=== PATIENT | male | born 1975 ===

== ENCOUNTER 2018-11-30 17:35 | Emergency (ER) | payer OTHER ==
[2018-11-30 17:45] VITALS: BP 113/77; PULSE 77; RESP 18; TEMP 98.2; O2SAT 97; BMI 24.3
[2018-11-30] MEDS ORDERED: Bacitracin 500 Units/gm Oint Foilpak UD ONE (18:58)
--- NOTE | 2018-11-30 18:59 | ED PDOC ---
Arrival/HPI - General Chief Complaint: Upper Extremity Problem/Injury Time Seen by Provider: 11/30/18 18:01 Historian: Patient - History of Present Illness Narrative History of Present Illness (Text): 11/30/18 18:55 43-year-old male presents to the emergency room for wound check to the left index finger. Patient states that approximately 1 week ago he sustained a laceration to his left index finger, he went to an urgent care center 2 days after the initial injury, states that his wound was too old for laceration repair therefore it was cleaned and a finger splint was applied. States when he left the urgent care he was also prescribed antibiotics which he is currently still taking. He reports no pain, redness, swelling, numbness or decrease in range of motion of the finger. He has no other complaints. Past Medical History - Infectious Disease Hx of Infectious Diseases: None - Cardiac Hx Cardiac Disorders: No - Psychiatric Hx Substance Use: No - Anesthesia Hx Anesthesia: No Family/Social History Family/Social History: No Known Family HX Smoking Status: Unknown If Ever Smoked Hx Alcohol Use: No Hx Substance Use: No Allergies/Home Meds Allergies/Adverse Reactions: Allergies No Known Allergies Allergy (Verified 11/30/18 18:00) Review of Systems - Review of Systems Constitutional: absent: Fatigue, Fevers Musculoskeletal: absent: Arthralgias, Back Pain, Neck Pain, Joint Swelling Skin: Laceration. absent: Rash, Skin Lesions Physical Exam Vital Signs Temp Pulse Resp BP Pulse Ox 11/30/18 17:40 98.2 F 77 18 113/77 97 Temperature: Afebrile Blood Pressure: Normal Pulse: Regular Respiratory Rate: Normal Appearance: Positive for: Well-Appearing, Non-Toxic, Comfortable Pain Distress: None Mental Status: Positive for: Alert and Oriented X 3 - Systems Exam Upper Extremity: Present: Normal Inspection, Normal ROM, NORMAL PULSES, Neurovascularly Intact, Capillary Refill < 2s, Norm 2-Pt Discrimination, Other (+healing 2 cm laceration to the distal lateral aspect of the L 2nd digit, +FROM, no erythema, no edema, no d/c, no signs of any infection, +sensation intact, +cap refill <2 sec). No: Edema, Tenderness, Swelling, Erythema, Temperature Abnormalties, Deformity Neurological: Present: GCS=15, CN II-XII Intact, Speech Normal, Motor Func Gr ossly Intact, Normal Sensory Function Skin: Present: Warm, Dry, Normal Color. No: Rashes Psychiatric: Present: Alert, Oriented x 3, Normal Insight, Normal Concentration Medical Decision Making ED Course and Treatment: 11/30/18 18:59 Finger splint removed. Wound cleaned and dressed. He is advised to no longer wear the splint his finger. Patient advised to do some simple physical therapy to his finger at home once a day every day, such as squeezing a stress relief ball. Advised on proper wound care at home and advised to continue to clean his wound daily. Encouraged to finish his antibiotics. Advised to follow up with referral physician in 1-2 days without fail. Return to the emergency room at any time for any new or worsening symptoms. Patient states he fully agrees with and understands discharge instructions. States that he agrees with the plan and disposition. Verbalized and repeated dis charge instructions and plan. I have given the patient opportunity to ask any additional questions. - PA / [employer] WORK[employer] / Resident Statement MD/DO has reviewed & agrees with the documentation as recorded. Disposition/Present on Arrival - Present on Arrival Any Indicators Present on Arrival: No History of DVT/PE: No History of Uncontrolled Diabetes: No Urinary Catheter: No History of Decub. Ulcer: No History Surgical Site Infection Following: None - Disposition Have Diagnosis and Disposition been Completed?: Yes Diagnosis: Encounter for re-check of laceration wound Disposition: HOME/ ROUTINE Disposition Time: 19:00 Patient Plan: Discharge Condition: STABLE Additional Instructions: Thank you for letting us take care of you today. You were treated for wound check. The emergency medical care you received today was directed at your acute symptoms. It may take several days for your symptoms to resolve. Return to the Emergency Department if your symptoms worsen, do not improve, or if you have any other problems. Please contact your doctor in 2 days for re-evaluation and follow up / or call one of the physicians/clinics you have been referred to that are listed on the Patient Visit Information form that is included in your discharge packet. Bring any paperwork you were given at discharge with you along with any medications you are taking to your follow up visit. Our treatment cannot replace ongoing medical care by a primary care provider (PCP) outside of the emergency department. Thank you for allowing the [facility] [employer] team to be part of your care today. Referrals: Olivier Mandel MD [Staff Provider] - Follow up with primary
== END 2018-11-30 20:16 | disposition home or self-care (01) ==
LOC: ED 17:35
DX: S61.211D Laceration without foreign body of left index finger without damage to nail, subsequent encounter (principal)